=== PATIENT | female | born 1985 | race Caucasian/White ===

== ENCOUNTER → 2017-02-12 | Outpatient (CLI) | payer MEDICAID ==
[2017-02-12 09:03] LABS: HEMOGLOBIN 13.4 g/dL (12.2-16.2); LYMPH # 3.2 K/mm3 (0.7-4.5); LYMPH % 32.2 % (10-50.0)
[2017-02-12 10:28] LABS: BUN 7 mg/dL (7-18)
[2017-02-12 10:59] LABS: GFR (ESTIMATED) 74 ML/MIN (59-)
== END ==
LOC: LAB 08:51
PROVIDERS: Nurse Practitioner Obstetrics & Gynecology
DX: Z30.09 Encounter for other general counseling and advice on contraception (principal); Z01.818 Encounter for other preprocedural examination